=== PATIENT | male | born 1990 | race Caucasian/White ===

== ENCOUNTER 2018-05-01 20:35 | Emergency (ER) | payer BC, OTHER ==
--- NOTE | 2018-05-01 21:28 | EDM.PDOC ---
ED HPI GENERAL MEDICAL PROBLEM - General Chief Complaint: Respiratory Problem Stated Complaint: COUGH CONGESTION CHEST PAIN Time Seen by Provider: 05/01/18 20:41 Source of Information: Reports: Patient - History of Present Illness INITIAL COMMENTS - FREE TEXT/NARRATIVE: Details documented on dictation. Onset: Today Chest Pain Score (Numeric/FACES): 4 - Related Data Allergies Allergy/AdvReac Type Severity Reaction Status Date / Time No Known Allergies Allergy Verified 05/01/18 20:45 Home Meds: Home Meds . [No Known Home Meds] 05/01/18 [History] Past Medical History - Past Health History Medical/Surgical History: Denies Medical/Surgical History Social & Family History - Tobacco Use Smoking Status *Q: Current Every Day Smoker Years of Tobacco use: 9 Packs/Tins Daily: 1 ED ROS GENERAL - Review of Systems Review Of Systems: ROS reveals no pertinent complaints other than HPI. Constitutional: Reports: No Symptoms HEENT: Reports: No Symptoms Respiratory: Reports: No Symptoms, Cough, Sputum Cardiovascular: Reports: No Symptoms Endocrine: Reports: No Symptoms GI/Abdominal: Reports: No Symptoms : Reports: No Symptoms Musculoskeletal: Reports: No Symptoms Skin: Reports: No Symptoms Neurological: Reports: No Symptoms Psychiatric: Reports: No Symptoms Hematologic/Lymphatic: Reports: No Symptoms Immunologic: Reports: No Symptoms ED EXAM, GENERAL - Physical Exam Exam: See Below Course - Vital Signs Last Recorded V/S: Last Vital Signs Temp 37.2 C 05/01/18 20:49 Pulse 94 05/01/18 20:49 Resp 18 05/01/18 20:49 BP 147/91 H 05/01/18 20:49 Pulse Ox 95 05/01/18 20:49 - Orders/Labs/Meds Orders: Active Orders 24 hr Category Date Time Status CXR [Chest 2V] [CR] Stat Exams 05/01/18 21:15 Ordered Departure - Departure Time of Disposition: 22:26 Disposition: Left Without Being Seen 07 Clinical Impression: Cough - Discharge Information *PRESCRIPTION DRUG MONITORING PROGRAM REVIEWED*: Not Applicable *COPY OF PRESCRIPTION DRUG MONITORING REPORT IN PATIENT SANTY: Not Applicable ( left AMA) Referrals: PCP,None [Primary Care Provider] - Forms: ED Department Discharge - My Orders Last 24 Hours: My Active Orders 05/01/18 21:15 CXR [Chest 2V] [CR] Stat - Assessment/Plan Last 24 Hours: My Active Orders 05/01/18 21:15 CXR [Chest 2V] [CR] Stat
--- NOTE | 2018-05-02 00:38 | ER ---
REASON FOR EMERGENCY ROOM VISIT: Cough. HISTORY OF PRESENT ILLNESS: This 27-year-old man comes in with a 4-day history of a runny nose and a cough. He denies any sore throat or fever. He has had a posttussive emesis one time yesterday. He has had some rib soreness secondary to coughing. He does admit to being a 4-kbma-l-day smoker. He works in the oil field. He has been taking Robitussin, but no antibiotics. He denies any GI complaints. He has not had a sore throat, but he has had a runny nose. PAST MEDICAL HISTORY: Reviewed, see EMR. HABITS: He smokes 1 pack per day. He denies alcohol or drug use. SOCIAL HISTORY: He is a smoker as mentioned above. He is , with 3 children, none of whom have been ill lately. CURRENT MEDICATIONS: Robitussin as needed. ALLERGIES: None to medications. PHYSICAL EXAMINATION: VITAL SIGNS: He is afebrile. Remaining vitals, see EMR. HEENT: Head is normocephalic. He does have some mild rhinorrhea. TMs are normal. Oropharynx normal with no exudates or erythema. NECK: Supple. No adenopathy. No JVD. CHEST: He does have diffuse rhonchi bilaterally. No wheezes or rales. Good air exchange is noted. CARDIAC: Regular rate without murmur. ABDOMEN: Soft and nontender. No organomegaly. EXTREMITIES: Good perfusion. No cyanosis. No edema. IMPRESSION: Rule out pneumonia. PLAN: He was waiting to get a chest x-ray, but the patient left AMA. I tried to reassure him that it would take a few minutes to get his chest x-ray performed and a few minutes after that. He left the ER abruptly against medical advice. MMTERESSA /[id number]
== END 2018-05-01 22:15 | disposition left against medical advice (07) ==
LOC: JD.ED 20:35
DX: R05 Cough (principal); J34.89 Other specified disorders of nose and nasal sinuses; F17.210 Nicotine dependence, cigarettes, uncomplicated
CPT/HCPCS: 99283